=== PATIENT | female | born 1995 | race Caucasian/White ===

== ENCOUNTER 2016-05-17 21:28 | Emergency (ER) | payer MEDICAID ==
[2016-05-17] MEDS ORDERED: ONDANSETRON 4 MG VIAL ONE (22:18)
[2016-05-17] MEDS ORDERED: SODIUM CHLORIDE 0.9% 1,000 ML ONE (22:18)
[2016-05-17] MEDS ORDERED: DILAUDID 1 MG/ML AMP ONE (22:30)
== END 2016-05-18 03:11 | disposition home or self-care (01) ==
LOC: ER 21:28
DX: R10.11 Right upper quadrant pain (principal); N39.0 Urinary tract infection, site not specified; F17.290 Nicotine dependence, other tobacco product, uncomplicated
CPT/HCPCS: 36415; 74176; 76705; 80053; 81001; 83690; 84703; 85025; 87088; 96361; 96374; 96375